=== PATIENT | male | born 1970 | race Caucasian/White ===

== ENCOUNTER 2018-10-19 08:11 | Emergency (ER) | payer BC, OTHER ==
[~2018-10-19] VITALS: Ht 180.3 cm; Wt 115.1 kg
[2018-10-19 08:19] VITALS: BP 133/87
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
--- NOTE | 2018-10-19 10:36 | NUR ---
EMAIL PRODUCTION SPECIALIST: Patient/Caregiver given discharge instructions and they have confirmed that they understand the instructions. Patient ambulatory with steady gait.
== END 2018-10-19 10:37 | disposition home or self-care (01) ==
LOC: ED 09:45
DX: S16.1XXA Strain of muscle, fascia and tendon at neck level, initial encounter (principal); S00.83XA Contusion of other part of head, initial encounter; S00.33XA Contusion of nose, initial encounter; Y04.0XXA Assault by unarmed brawl or fight, initial encounter; Y93.89 Activity, other specified; Y92.099 Unspecified place in other non-institutional residence as the place of occurrence of the external cause; Y99.8 Other external cause status
CPT/HCPCS: 70450; 70486; 72125; 99284

== ENCOUNTER 2018-10-30 15:28 | Emergency (ER) | payer BC, OTHER ==
[~2018-10-30] VITALS: Ht 180.3 cm; Wt 112.0 kg
[2018-10-30 15:32] VITALS: BP 153/101
[2018-10-30] MEDS ORDERED: LORazepam 1MG TABLET ONE (15:52)
[2018-10-30] MEDS ORDERED: LORazepam 1MG TABLET PO ONE (16:00)
== END 2018-10-30 16:16 | disposition home or self-care (01) ==
LOC: ED 16:09
DX: F41.1 Generalized anxiety disorder (principal); F17.200 Nicotine dependence, unspecified, uncomplicated
CPT/HCPCS: 99284